=== PATIENT | female | born 1970 | race Two or more races ===

== ENCOUNTER → 2024-11-08 | Outpatient (BNVA) | payer BC, SELFPAY | END | disposition home or self-care (01) | PROVIDERS: PCP Nurse Practitioner Family; Referring Provider Nurse Practitioner Family; Visit Provider Nurse Practitioner Family | DX: E78.5 Hyperlipidemia, unspecified (principal); E11.9 Type 2 diabetes mellitus without complications | CPT/HCPCS: 99213 ==

== ENCOUNTER → 2024-11-22 | Outpatient (BNVA) | payer BC, SELFPAY | END | disposition home or self-care (01) | PROVIDERS: PCP Nurse Practitioner Family; Referring Provider Nurse Practitioner Family; Visit Provider Nurse Practitioner Family | DX: E11.9 Type 2 diabetes mellitus without complications (principal); E78.5 Hyperlipidemia, unspecified; Z71.2 Person consulting for explanation of examination or test findings; B95.1 Streptococcus, group B, as the cause of diseases classified elsewhere | CPT/HCPCS: 99213 ==

== ENCOUNTER → 2024-12-04 | Outpatient (BNVA) | payer BC, SELFPAY | END | disposition home or self-care (01) | PROVIDERS: PCP Nurse Practitioner Family; Referring Provider Nurse Practitioner Family; Visit Provider Nurse Practitioner Family | DX: Z00.01 Encounter for general adult medical examination with abnormal findings (principal); Z12.31 Encounter for screening mammogram for malignant neoplasm of breast; R01.1 Cardiac murmur, unspecified; E78.5 Hyperlipidemia, unspecified; E11.8 Type 2 diabetes mellitus with unspecified complications | CPT/HCPCS: 93005; 99214 ==

== ENCOUNTER → 2024-12-11 | Outpatient (BNVA) | payer BC, SELFPAY | END | disposition home or self-care (01) | PROVIDERS: PCP Nurse Practitioner Family; Referring Provider Nurse Practitioner Family; Visit Provider Nurse Practitioner Family | DX: Z12.4 Encounter for screening for malignant neoplasm of cervix (principal) | CPT/HCPCS: 81001; 99215; Q0091 ==

== ENCOUNTER → 2024-12-25 | Outpatient (BNVA) | payer BC, SELFPAY | END | disposition home or self-care (01) | PROVIDERS: PCP Nurse Practitioner Family; Referring Provider Nurse Practitioner Family; Visit Provider Nurse Practitioner Family | DX: Z12.4 Encounter for screening for malignant neoplasm of cervix (principal); Z71.2 Person consulting for explanation of examination or test findings | CPT/HCPCS: 99213 ==

== ENCOUNTER → 2025-01-28 | Outpatient (BNVA) | payer BC, SELFPAY | END | disposition home or self-care (01) | PROVIDERS: PCP Nurse Practitioner Family; Referring Provider Nurse Practitioner Family; Visit Provider Nurse Practitioner Family | DX: E78.5 Hyperlipidemia, unspecified (principal); E11.9 Type 2 diabetes mellitus without complications ==

== ENCOUNTER → 2025-02-20 | Outpatient (BNVA) | payer BC, SELFPAY | END | disposition home or self-care (01) | PROVIDERS: PCP Nurse Practitioner Family; Referring Provider Nurse Practitioner Family; Visit Provider Nurse Practitioner Family | DX: Z12.39 Encounter for other screening for malignant neoplasm of breast (principal); E11.8 Type 2 diabetes mellitus with unspecified complications; Z23 Encounter for immunization | CPT/HCPCS: 83036; 90471; 90677; 99214; J90677 ==

== ENCOUNTER → 2025-03-11 | Outpatient (CLI) | payer BC, SELFPAY ==
--- NOTE | 2025-03-11 09:30 | XR_ITS ---
Examination: Screening digital mammography, bilateral Computer aided detection 3-D breast Tomosynthesis, bilateral Date and time of exam: March 11, 2025 0929 hours Compared to mammograms dating to 07/17/2007 Indication: Screening Technique: Nonmagnified MLO, CC views of the breasts to been obtained, reconstructed from 3-D Tomosynthesis images. R2 computer aided detection program utilized for evaluation of suspicious masses and/or abnormal calcifications. 3-D Tomosynthesis images obtained. Findings: Scattered areas of fibroglandular density. Benign calcifications. No interval suspicious masses Impression: BI-RADS category II: Benign Findings. Recommend 1 year follow-up mammogram.
== END | disposition home or self-care (01) ==
LOC: CDIM 08:59
PROVIDERS: Referring Provider Nurse Practitioner Family; Visit Provider Nurse Practitioner Family
DX: Z12.31 Encounter for screening mammogram for malignant neoplasm of breast (principal); R92.323 Mammographic fibroglandular density, bilateral breasts; R92.1 Mammographic calcification found on diagnostic imaging of breast
CPT/HCPCS: 77063; 77067

== ENCOUNTER → 2025-05-06 | Outpatient (BNVA) | payer BC, SELFPAY | END | disposition home or self-care (01) | PROVIDERS: PCP Nurse Practitioner Family; Referring Provider Nurse Practitioner Family; Visit Provider Nurse Practitioner Family | DX: Z71.2 Person consulting for explanation of examination or test findings (principal) | CPT/HCPCS: 99212; G0463 ==

== ENCOUNTER → 2025-05-29 | Outpatient (BNVA) | payer BC, SELFPAY | END | disposition home or self-care (01) | PROVIDERS: PCP Nurse Practitioner Family; Referring Provider Nurse Practitioner Family; Visit Provider Nurse Practitioner Family | DX: Z71.2 Person consulting for explanation of examination or test findings (principal); E11.65 Type 2 diabetes mellitus with hyperglycemia; E78.5 Hyperlipidemia, unspecified | CPT/HCPCS: 99212; G0463 ==

== ENCOUNTER → 2025-08-29 | Outpatient (BNVA) | payer BC, SELFPAY | END | disposition home or self-care (01) | PROVIDERS: PCP Nurse Practitioner Family; Referring Provider Nurse Practitioner Family; Visit Provider Nurse Practitioner Family | DX: E11.649 Type 2 diabetes mellitus with hypoglycemia without coma (principal) | CPT/HCPCS: 82948; 83036; 99214 ==

== ENCOUNTER 2025-08-31 12:47 | Emergency (ER) | payer BC, SELFPAY ==
--- NOTE | 2025-08-31 13:21 | XR_ITS ---
Examination: Foot, right, 3 views Technique: AP, oblique, lateral views foot, 3 views Date and time of exam: August 31, 2025, 1334 hours INDICATIONS: Patient fell today with injury to the foot, fifth digit pain FINDINGS: Moderate osteopenia Nondisplaced acute fracture proximal aspect proximal phalanx fifth digit No dislocation IMPRESSION: Nondisplaced acute fracture proximal aspect proximal phalanx fifth digit
--- NOTE | 2025-08-31 13:24 | PD.EDANKLE ---
Lower Extremity Injury RME/HPI General Chief Complaint: Ankle/Foot Injury Stated Complaint: INJURY R) 5TH TOE Time Seen by Provider: 08/31/25 12:59 Arrival date/time: 08/31/25 12:47 RME / HPI RME / HPI Narrative: DR. HODGE MAIN ED EVALUATION: 55-year-old female with a history of type 2 diabetes mellitus, hypertension, and hyperlipidemia presents to the Emergency Department for right foot pain and swelling after striking a metal rail/gate while walking barefoot yesterday evening. She has been taking Advil and ibuprofen at home with minimal relief. She reports bruising and swelling over the top of the foot today. Denies numbness, tingling, or open wounds. Related Data Previous Rx's ?Medication ?Instructions ?Recorded flash glucose scanning reader #1 ea 11/08/24 (FreeStyle Leonel 2 [place]) flash glucose sensor (FreeStyle #1 ea 11/08/24 Leonel 2 Sensor kit) aspirin 81 mg tablet,delayed 81 mg PO QDAY #90 tabs 05/29/25 release (Adult Low Dose Aspirin) lisinopril 5 mg tablet 5 mg PO QDAY #90 tabs 05/29/25 metformin 500 mg tablet 500 mg PO BID 90 days #180 tabs 05/29/25 metoprolol succinate 25 mg 25 mg PO QDAY #90 tabs 05/29/25 tablet,extended release 24 hr rosuvastatin 10 mg tablet 10 mg PO QDAY #90 tabs 05/29/25 semaglutide 2 mg/dose (8 mg/3 mL) 2 mg (0.75 mL) subcut QWEEK #3 mL 05/29/25 subcutaneous pen injector (Ozempic) empagliflozin 25 mg tablet 25 mg PO QAM #90 tabs 06/27/25 (Jardiance) blood-glucose sensor (Dexcom G7 #3 ea 08/29/25 Sensor device) Allergies Allergy/AdvReac Type Severity Reaction Status Date / Time latex Allergy Severe Difficulty Verified 08/31/25 12:49 Breathing Review of Systems Review of Systems Systems Reviewed: All systems reviewed, normal except as documented Past Medical History Past Medical History CARDIAC: Positive Cardiac Disorders and Hypertension ENDOCRINE: Positive Endocrine Disorders and Diabetes Mellitus Type 2 Surgical History SURGICAL: Positive Abdominal Surgery and Section Social History SMOKING STATUS: Never smoker SECOND HAND EXPOSURE: No SUBSTANCE USE: does not use ALCOHOL: Never ED Exam Narrative Physical exam: GENERAL APPEARANCE: alert and oriented x 4, well-developed, well-nourished, ambulatory with mild discomfort VITALS: All vitals were reviewed and the pulse ox is 97% on room air, which is normal according to my interpretation. HEENT: Normocephalic, atraumatic; pupils equal, round, reactive to light; EOMI; mucous membranes pink, moist; oropharynx clear NECK: Supple LUNGS: CTABL; no wheezes, no rales, no rhonchi HEART: Regular rate, regular rhythm; normal S1, S2; no murmurs ABDOMEN: non distended; normal BS; soft, no tenderness, no guarding, no rebound; no masses, no organomegaly, no hernia BACK: no CVA tenderness EXTREMITIES: Right foot with ecchymosis over the dorsum, tenderness localized to the 5th toe but no deformity or crepitus; mild swelling NEUROLOGIC: awake; alert and oriented x4; cranial nerves II-XII grossly intact; no focal sensory or motor deficits PSYCHIATRIC: appropriate mood and affect SKIN: warm, dry, normal color; no rashes Course Quality Measures none Orders Category Date Time Status XR foot comp RT min 3V Stat Exams 08/31/25 13:21 Completed HYDROcodone*/APAP 5/325 [[place] 5/325] Med 08/31/25 13:21 Discontinued 1 tab PO X1 ONE Ketorolac Inj [Toradol Inj] Med 08/31/25 14:50 Discontinued 30 mg IM X1 ONE Vital Signs Vital signs: Vital Signs Temperature 98.4 F 08/31/25 13:28 Pulse Rate 79 08/31/25 13:28 Respiratory Rate 18 08/31/25 13:28 Blood Pressure 107/67 08/31/25 13:28 Pulse Oximetry (%) 97 08/31/25 13:28 Oxygen Delivery Method Room Air 08/31/25 13:28 Extremity Injury, Lower MDM Narrative MDM Narrative:: I, Karrie Melgar am scribing for and in the presence of Dr. Hodge. Patient data External records reviewed:: [facility] previous records Clinical information provided by:: patient Social determinants that could affect healthcare access:: none Patient has the following chronic illnesses:: type 2 diabetes mellitus, hypertension, and hyperlipidemia How is presenting disease/condition affected by chronic disease/condition?: exacerbated by Evaluation data The following diagnostics were reviewed and interpreted by me:: radiology exam(s) Lab and/or radiology exams considered but not ordered:: none Interpretation Summary: Procedure(s): XR foot comp RT min 3V Accession Number(s): [id number] cc: Billy Hernandez MD; Ginny Hodge MD; Katherin Smith ([facility])~ Examination: Foot, right, 3 views Technique: AP, oblique, lateral views foot, 3 views Date and time of exam: August 31, 2025, 1334 hours INDICATIONS: Patient fell today with injury to the foot, fifth digit pain FINDINGS: Moderate osteopenia Nondisplaced acute fracture proximal aspect proximal phalanx fifth digit No dislocation IMPRESSION: Nondisplaced acute fracture proximal aspect proximal phalanx fifth digit Dictated By: Billy Hernandez MD Medications / Prescriptions Medications or Prescriptions considered but not ordered:: none Medication administrations:: Medication Administration History Discontinued Medications Hydrocodone Bitart/Acetaminophen (Hydrocodone/Apap 5/325 Tablet) 1 tab PO X1 ONE Stop: 08/31/25 13:22 Last Admin: 08/31/25 13:52 Dose: 1 tab Documented By: OA Ketorolac Tromethamine (Ketorolac Inj 30 Mg/Ml Vial) 30 mg IM X1 ONE Stop: 08/31/25 14:51 Last Admin: 08/31/25 14:53 Dose: 30 mg Documented By: MF see above Consultations Consultation(s) initiated? (list below): No Diagnosis Extremity Injury, Lower Differential Diagnosis: other (Foot contusion, toe fracture, and soft tissue injury.) Most likely diagnosis given after review of the tests above:: Closed fracture of toe Admission Indicated Admission indicated?: not indicated Admission Request Was there a request for admission?: No Disposition Plan Disposition Plan: Discharge Discharge Attestation Discharge Attestation: The patient and all family members were given an opportunity to ask questions and understood the discharge instructions. Discharge instructions specifically effects, indications for sooner follow up or return to the emergency department, and the expected course of current diagnosis. Patient condition: Stable Discharge Plan Plan Patient Disposition: HOME (Self Care) Prescriptions/Referrals Prescriptions/Med Rec: No Action (DME) FreeStyle Leonel 2 [place] Misc See Rx Instructions .Route Qty: 1 0RF Rx Instructions: As directed for 90 days (DME) FreeStyle Leonel 2 Sensor Kit See Rx Instructions .Route Qty: 1 0RF Rx Instructions: As directed for 90 days (DME) Dexcom G7 Sensor Device See Rx Instructions .ROUTE .MEDSUPPLY Qty: 3 6RF Rx Instructions: Dispense 30 day supplies aspirin [Adult Low Dose Aspirin] 81 mg tablet,delayed release (DR/EC) 81 mg PO QDAY Qty: 90 1RF lisinopril 5 mg tablet 5 mg PO QDAY Qty: 90 1RF metformin 500 mg tablet 500 mg PO BID 90 Days Qty: 180 1RF metoprolol succinate 25 mg tablet extended release 24 hr 25 mg PO QDAY Qty: 90 1RF rosuvastatin 10 mg tablet 10 mg PO QDAY Qty: 90 1RF Ozempic 2 mg/dose (8 mg/3 mL) pen injector 2 mg subcut QWEEK Qty: 3 3RF Jardiance 25 mg tablet 25 mg PO QAM Qty: 90 0RF Referrals: Luis [facility] STORAGE MANAGER,Katherin Sim STORAGE MANAGER [Primary Care Provider, Family Practice] - In 1 week Problem List Clinical Impression: Closed fracture of toe Patient/Caregiver Discharge Instructions Education Materials: ED Fracture, Toe, Closed Print Language: Ukrainian Stand Alone Forms: Sydnee Award Info., Patient Portal Info Letter
[2025-08-31 13:28] VITALS: BP 107/67; PULSE 79; RESP 18; TEMP 36.9; O2SAT 97
[2025-08-31] MEDS: HYDROcodone/APAP 5/325 TABLET 1 TAB PO (13:52)
[2025-08-31] MEDS: KETOROLAC INJ 30 MG/ML VIAL IM (14:53)
--- NOTE | 2025-08-31 15:11 | PC.NURSE ---
CAST SHOE APPLIED TO PTS R FOOT, PT TOLERATED WELL, DENIES PAIN AT THIS TIME.
== END 2025-08-31 15:13 | disposition home or self-care (01) ==
PROVIDERS: Emergency Provider Emergency Medicine; PCP Nurse Practitioner Family
DX: S92.511A Displaced fracture of proximal phalanx of right lesser toe(s), initial encounter for closed fracture (principal); W19.XXXA Unspecified fall, initial encounter; Y93.01 Activity, walking, marching and hiking; E11.9 Type 2 diabetes mellitus without complications; E78.5 Hyperlipidemia, unspecified; I10 Essential (primary) hypertension; Z79.82 Long term (current) use of aspirin; Z79.84 Long term (current) use of oral hypoglycemic drugs; Z79.85 Long-term (current) use of injectable non-insulin antidiabetic drugs
CPT/HCPCS: 73630; 99282; J1885; A9270

== ENCOUNTER → 2025-09-01 | Outpatient (BNVA) | payer BC, SELFPAY | END | disposition home or self-care (01) | PROVIDERS: PCP Nurse Practitioner Family; Referring Provider Nurse Practitioner Family; Visit Provider Nurse Practitioner Family | DX: Z09 Encounter for follow-up examination after completed treatment for conditions other than malignant neoplasm (principal); S92.501A Displaced unspecified fracture of right lesser toe(s), initial encounter for closed fracture; X58.XXXA Exposure to other specified factors, initial encounter; Z71.2 Person consulting for explanation of examination or test findings | CPT/HCPCS: 99213 ==

== ENCOUNTER → 2025-10-13 | Outpatient (BNVA) | payer BC, SELFPAY | END | disposition home or self-care (01) | PROVIDERS: PCP Nurse Practitioner Primary Care; Referring Provider Nurse Practitioner Primary Care; Visit Provider Nurse Practitioner Primary Care | DX: S92.919D Unspecified fracture of unspecified toe(s), subsequent encounter for fracture with routine healing (principal); E11.649 Type 2 diabetes mellitus with hypoglycemia without coma | CPT/HCPCS: 99213 ==

== ENCOUNTER 2025-10-19 11:13 | Emergency (ER) | payer BC, SELFPAY ==
[2025-10-19 11:14] VITALS: BMI 22.6
[2025-10-19 11:32] VITALS: BP 103/71; PULSE 112; RESP 18; TEMP 37.1; O2SAT 98
--- NOTE | 2025-10-19 12:00 | EDNOTE_ITS ---
<Statement entered by Ginny Hodge MD - 10/21/25 17:41> As co-signing physician, I was present and available for consult prn. I concur with the plan and care as documented by the midlevel provider. ED Female Urogenital RME/HPI General Chief complaint: Urogenital-Female Stated complaint: TROUBLE URINATING, OLIGURIA X3 DAY Time Seen by Provider: 10/19/25 11:54 Arrival date/time: 10/19/25 11:13 RME / HPI RME / HPI Narrative: 55-year-old female with past medical history of diabetes as well as urinary retention, patient states that 3 years ago she saw urogynecologist across the street who made an opening near my vagina because he said that it was tight . Patient states that she has been having urinary frequency, dribbling and suprapubic fullness for the past 3 days along with nausea, vomiting, fever. Denies any diarrhea. Related Data Previous Rx's ?Medication ?Instructions ?Recorded flash glucose scanning reader #1 ea 11/08/24 (FreeStyle Leonel 2 [place]) flash glucose sensor (FreeStyle #1 ea 11/08/24 Leonel 2 Sensor kit) blood-glucose sensor (Dexcom G7 #3 ea 08/29/25 Sensor device) ibuprofen 600 mg tablet 600 mg PO Q8H PRN fever or p ain 09/04/25 #30 tabs aspirin 81 mg tablet,delayed 81 mg PO QDAY #90 tabs release (Adult Low Dose Aspirin) empagliflozin 25 mg tablet See Rx Instructions .Route 10/13/25 (Jardiance) .COMPLEX #90 tabs lisinopril 5 mg tablet 5 mg PO QDAY #90 tabs metformin 500 mg tablet 500 mg PO BID 90 days #180 t abs 10/13/25 metoprolol succinate 25 mg 25 mg PO QDAY #90 tabs 06/30 tablet,extended release 24 hr rosuvastatin 10 mg tablet 10 mg PO QDAY #90 tabs 10/13 semaglutide 2 mg/dose (8 mg/3 mL) 2 mg (0.75 mL) subcu t QWEEK #3 mL 10/13/25 subcutaneous pen injector (Ozempic) Allergies Allergy/AdvReac Type Severity Reaction Status Date / Time latex Allergy Severe Difficulty Verified 10/19/25 11:16 Breathing Course Quality Measures none Orders Category Date Time Status Bladder Scan X1 Care 10/19/25 12:01 Active [place] to Leg Bag Routine Care 10/19/25 12:01 Ordered NPO NOW Care 10/19/25 12:01 Active Post Void Residual ONCE Care 10/19/25 15:21 Active Diet NPO (NOW) Diet 10/19/25 12:[address] abdomen pelvis wo con Stat Exams 10/19/25 12:01 Completed CBC Stat Lab 10/19/25 12:19 Completed CMP [Comprehensive Metabolic Panel] Stat Lab 10/19/25 12:19 Completed HCG,Qualitative Serum Stat Lab 10/19/25 12:19 Completed Lipase Stat Lab 10/19/25 12:19 Completed Urinalysis Stat Lab 10/19/25 12:31 Completed Urine Culture Stat Lab 10/19/25 12:31 Received Ketorolac Inj [Toradol Inj] Med 10/19/25 12:01 Discontinued 30 mg IM X1 ONE Ondansetron Odt [Zofran Odt] Med 10/19/25 12:01 Discontinued 4 mg PO X1 ONE Vital Signs Vital signs: Vital Signs Temperature 98.7 F 10/19/25 11:32 Pulse Rate 112 H 10/19/25 11:32 Respiratory Rate 18 10/19/25 11:32 Blood Pressure 103/71 10/19/25 11:32 Pulse Oximetry (%) 98 10/19/25 11:32 Oxygen Delivery Method Room Air 10/19/25 11:32 Urogenital - Female MDM Narrative MDM Narrative:: MDM: The patient presents with abdominal pain without definite explanation found on evaluation today. I am concerned for hemorrhagic cystitis. Additionally there is a possibility of a recently passed bladder stone however there is no signs of active urologic obstruction or hydronephrosis. No signs of ascending UTI clinically I do not appreciate a fever or toxicity doubt urosepsis. Patient aware that her symptoms may represent bladder CA versus postmenopausal bleeding and necessity to follow-up with PMD for referral to urogynecologist for cystoscopy.Bladder scan postvoid residual without any remaining fluid therefore there is no signs of acute urinary retention. Will treat patient empirically with antibiotics for possible hemorrhagic cystitis after discussion of risk and benefits of antibiotics with patient. However, there are no signs of peritonitis or other life-threatening or serious etiology. I considered admission; however, given negative work up and imaging, admission is not indicated. Serial abdominal exams were benign throughout the ED stay, and the patient tolerated oral intake without difficulty. The inherent uncertainty with undifferentiated abdominal pain was emphasized, and strict return precautions were provided. The patient has been instructed that this presentation could represent an early acute abdominal process. The plan is for mandatory re- evaluation within 24 hours and immediate return for worsening, persistence, or change in symptoms. The patient may follow up with their primary care provider or return to the ED as appropriate. The patient appears stable for discharge at this time. Patient data External records reviewed:: [facility] previous records Clinical information provided by:: patient Social determinants that could affect healthcare access:: none Patient has the following chronic illnesses:: As noted How is presenting disease/condition affected by chronic disease/condition?: exacerbated by Evaluation data The following diagnostics were reviewed and interpreted by me:: lab results and radiology exam(s) Lab and/or radiology exams considered but not ordered:: Additional Labs and radiology considered, but not ordered as they were not clinically indicated at this time. Interpretation Summary: Patient with mild leukocytosis 13.2 with a left shift of 86% and neutrophil number minimally elevated 11,000 with minimally elevated immature granulocytes at 0.05 thousand, hemoglobin within normal limits 15.4 with minimally elevated hematocrit of 46.1% Corrected calcium minimally elevated 10.2, glucose minimally elevated 115 otherwise no severe metabolic or electrolyte abnormality including a normal lipase at 38 Urine specific gravity elevated 1.037, urine protein, glucose, ketones, blood with 2609 RBCs to urine 33 WBCs this is concerning for possible cystitis CT scan notes small nonobstructing left renal calculi and a thickened bladder concerning for cystitis and no pelvic mass Medications / Prescriptions Medications or Prescriptions considered but not ordered:: I ordered medications based on the patient?s clinical needs and assessment, as documented in the chart. For medications not prescribed, they were not indicated for the patient's current condition, and I determined they were unnecessary at this time to avoid potential risks or complications. Medication administrations:: Medication Administration History Discontinued Medications Ketorolac Tromethamine (Ketorolac Inj 30 Mg/Ml Vial) 30 mg IM X1 ONE Stop: 10/19/25 12:02 Last Admin: 10/19/25 12:23 Dose: 30 mg Documented By: Ondansetron HCl (Ondansetron Odt 4 Mg Tabrap) 4 mg PO X1 ONE; Protocol Stop: 10/19/25 12:02 Last Admin: 10/19/25 12:22 Dose: 4 mg Documented By: As noted Consultations Consultation(s) initiated? (list below): No Diagnosis Urogenital Female Differential Diagnosis: urinary tract infection, cystitis and other Most likely diagnosis given after review of the tests above:: Hemorrhagic cystitis however this is abdominal pain of unclear etiology Admission Indicated Admission indicated?: not indicated Admission Request Was there a request for admission?: No Disposition Plan Disposition Plan: Discharge Discharge Attestation Discharge Attestation: The patient and all family members were given an opportunity to ask questions and understood the discharge instructions. Discharge instructions specifically effects, indications for sooner follow up or return to the emergency department, and the expected course of current diagnosis. Patient condition: Stable Discharge Plan Plan Patient Disposition: HOME (Self Care) Patient condition on transfer: Stable Prescriptions/Referrals Prescriptions/Med Rec: No Action (DME) FreeStyle Leonel 2 [place] Misc See Rx Instructions .Route Qty: 1 0RF Rx Instructions: As directed for 90 days (DME) FreeStyle Leonel 2 Sensor Kit See Rx Instructions .Route Qty: 1 0RF Rx Instructions: As directed for 90 days (DME) Dexcom G7 Sensor Device See Rx Instructions .ROUTE .MEDSUPPLY Qty: 3 6RF Rx Instructions: Dispense 30 day supplies ibuprofen 600 mg tablet 600 mg PO Q8H PRN (Reason: fever or pain) Qty: 30 0RF Ozempic 2 mg/dose (8 mg/3 mL) pen injector 2 mg subcut QWEEK Qty: 3 3RF rosuvastatin 10 mg tablet 10 mg PO QDAY Qty: 90 1RF metoprolol succinate 25 mg tablet extended release 24 hr 25 mg PO QDAY Qty: 90 1RF metformin 500 mg tablet 500 mg PO BID 90 Days Qty: 180 1RF lisinopril 5 mg tablet 5 mg PO QDAY Qty: 90 1RF Jardiance 25 mg tablet See Rx Instructions .ROUTE .COMPLEX Qty: 90 0RF Dose Instruction: TAKE 1 TABLET BY MOUTH ONCE DAILY IN THE MORNING AT 9 AM Rx Instructions: TAKE 1 TABLET BY MOUTH ONCE DAILY IN THE MORNING AT 9 AM aspirin [Adult Low Dose Aspirin] 81 mg tablet,delayed release (DR/EC) 81 mg PO QDAY Qty: 90 1RF Problem List Clinical Impression: Abdominal pain, Hematuria Impression comment: Cannot exclude hemorrhagic cystitis Patient/Caregiver Discharge Instructions Diet Instructions: Follow up with your primary medical doctor within 48 hours. Return to the Emergency Room immediately for any new, worsening, continuing symptoms or any concerns at all. Return to the Emergency Room within 48 hours if you are unable to follow up with your primary medical doctor within 48 hours. Follow-up with your urogynecologist as well within 1 week. Education Materials: Abdominal Pain, Hematuria: Possible Causes Additional Instructions: Follow up with your primary medical doctor within 48 hours. Return to the Emergency Room immediately for any new, worsening, continuing symptoms or any concerns at all. Return to the Emergency Room within 48 hours if you are unable to follow up with your primary medical doctor within 48 hours. You will need to see a urogynecologist as well for a cystoscopy to exclude cancer, please have your primary doctor refer you to 1. Print Language: Ghanaian Stand Alone Forms: Sydnee Award Info., Patient Portal Info Letter ANNIE/YOVANI Supervising Physician ANNIE/YOVANI Supervising Physician: Dr. Hodge
--- NOTE | 2025-10-19 12:01 | XR_ITS ---
Examination: CT abdomen and pelvis without contrast. Coronal 3-D reconstructions. Sagittal 2-D reconstructions. Date and time of exam: October 19, 2025, 12:12 p.m. INDICATIONS: Periumbilical pain and difficulty urinating beginning 3 days ago. CTDI: vol (mGy): 5.8 DLP: (mGycm): 282 Technique: Axial images of the abdomen have been obtained, 3 mm slice thickness Intravenous contrast material has not been administered. Low dose protocols were performed. One or more of the following dose reduction techniques were used; automated exposure control, adjustment of the mA and/or KV according to patient size, use of iterative reconstruction technique. Findings: No visualized liver or splenic lesion Absent gallbladder No pancreatic or adrenal mass 2 mm 1 mm left renal calculi, no hydronephrosis or ureteral calculi Aortic calcification no aneurysmal dilatation Normal appendix No bowel obstruction or diverticulitis No pelvic mass Urinary bladder wall thickening up to 14 mm no bladder calculi Moderate osteopenia IMPRESSION: Small nonobstructing left renal calculus, no hydronephrosis or ureteral calculi Normal appendix No bowel obstruction Urinary bladder wall thickening, consider cystitis
[2025-10-19] MEDS: ONDANSETRON ODT 4 MG TABRAP PO (12:22)
[2025-10-19] MEDS: KETOROLAC INJ 30 MG/ML VIAL IM (12:23)
[2025-10-19 12:49] LABS: Collection Type, Urine Voided; Squamous Epithelial Cell,Urine 0 /hpf (0-5)
[2025-10-19 12:51] LABS: Basophils # (Auto) 0.0 Thou/mm3 (0.0-0.2); Basophils % (Auto) 0 % (0-2.5); Eosinophils # (Auto) 0.0 Thou/mm3 (0.0-0.5); Eosinophils % (Auto) 0 % (0-10); Hematocrit 46.1 % (36.0-46.0); Hemoglobin 15.4 g/dL (12.0-16.0); Immature Granulocytes Auto 0.05 Thou/mm3 (0.00-0.00); Lymphocytes # (Auto) 1.2 Thou/mm3 (1.0-4.8); Lymphocytes % (Auto) 9 % (10-50); Mean Corpuscular HGB Conc 33.4 g/dl (31.0-37.0); Mean Corpuscular Hemoglobin 28.9 pg (25.0-35.0); Mean Corpuscular Volume 87 fL (80-100); Monocytes # (Auto) 0.6 Thou/mm3 (0.0-0.8); Monocytes % (Auto) 5 % (0-12); Neutrophils # (Auto) 11.3 Thou/mm3 (1.8-7.7); Neutrophils % (Auto) 86 % (37-80); Nucleated Red Blood Cell # 0.00 Thou/mm3 (0.00-0.00); Nucleated Red Blood Cell % 0 /100 WBC (0); Platelet Count 236 Thou/mm3 (140-440); RDW Standard Deviation 40.8 fL (36.4-46.3); Red Blood Count 5.32 Miln/mm3 (4.00-5.20); White Blood Count 13.2 Thou/mm3 (3.6-11.0)
[2025-10-19 13:01] LABS: HCG,Qualitative Serum Negative
[2025-10-19 13:07] LABS: Bilirubin,Urine Negative (Negative); Blood,Urine 3+ (Negative); Color,Urine Dark-Brown (Lt Yel-Yel); Glucose, Urine 4+ (Negative); Ketones,Urine 2+ (Negative); Leukocyte Esterase,Urine Positive (Negative); Nitrite,Urine Negative (Negative); PH,Urine 6.0 (5.0-7.0); Protein,Urine 2+ (Neg - Trace); RBC,Urine 2609 /hpf (0-3); Specific Gravity,Urine 1.037 (1.001-1.035); Urobilinogen,Urine Negative mg/dL (0.0-1.0); WBC,Urine 233 /hpf (0-5)
[2025-10-19 13:09] LABS: Alanine Aminotransferase 25 U/L (10-49); Albumin, Serum 5.3 gm/dL (3.5-5.0); Albumin/Globulin Ratio 1.7 (1.2-2.2); Alkaline Phosphatase 73 U/L (46-116); Anion Gap 13 (7-16); Aspartate Amino Transferase 28 U/L (0-34); BUN/Creatinine Ratio 17 Ratio (12-20); Bilirubin,Total 1.1 mg/dL (0.3-1.2); Blood Urea Nitrogen 12 mg/dL (9-23); Calcium 10.2 mg/dL (8.3-10.6); Calcium (Corrected) 10.2 mg/dL (8.5-10.1); Carbon Dioxide 25.3 mMol/L (20.0-31.0); Chloride 103 mMol/L (98-107); Creatinine (Component) 0.7 mg/dL (0.6-1.3); Estimated Creatinine Clearance 73.5 mL/min (>60); Globulin 3.2 gm/dL (2.3-3.5); Glucose 115 mg/dL (74-106); Lipase 38 U/L (12-53); Osmolality,Calculated 281 (275-295); Potassium 3.5 mMol/L (3.4-5.1); Sodium 141 mMol/L (136-145); Total Protein 8.5 gm/dL (5.7-8.2); eGFR > 60 See Note
[2025-10-19 13:15] LABS: Clarity,Urine Bloody (Clear/Hazy)
[2025-10-19 15:54] VITALS: BP 115/70; PULSE 86; RESP 19; O2SAT 97
== END 2025-10-19 16:50 | disposition home or self-care (01) ==
LOC: SERX 16:48
PROVIDERS: Physician Assistant; Emergency Provider Emergency Medicine; PCP Nurse Practitioner Family
DX: N20.0 Calculus of kidney (principal); N32.89 Other specified disorders of bladder
CPT/HCPCS: 36415; 74176; 80053; 81001; 83690; 84703; 85025; 87086; 96372; 99284; J1885; Q0162

== ENCOUNTER → 2025-10-22 | Outpatient (BNVA) | payer BC, SELFPAY | END | disposition home or self-care (01) | PROVIDERS: PCP Nurse Practitioner Family; Referring Provider Nurse Practitioner Family; Visit Provider Nurse Practitioner Family | DX: Z09 Encounter for follow-up examination after completed treatment for conditions other than malignant neoplasm (principal); R31.9 Hematuria, unspecified; Z01.812 Encounter for preprocedural laboratory examination; R10.20 Pelvic and perineal pain unspecified side; Z80.8 Family history of malignant neoplasm of other organs or systems | CPT/HCPCS: 81001; 96372; 99215; J1885 ==

== ENCOUNTER → 2025-10-28 | Outpatient (BNVA) | payer BC, SELFPAY | END | disposition home or self-care (01) | PROVIDERS: PCP Nurse Practitioner Family; Referring Provider Nurse Practitioner Family; Visit Provider Nurse Practitioner Family | DX: Z09 Encounter for follow-up examination after completed treatment for conditions other than malignant neoplasm (principal); N36.8 Other specified disorders of urethra; Z71.2 Person consulting for explanation of examination or test findings; R10.20 Pelvic and perineal pain unspecified side; Z80.8 Family history of malignant neoplasm of other organs or systems; R31.9 Hematuria, unspecified | CPT/HCPCS: 99213 ==